=== PATIENT | female | born 1950 | race Caucasian/White ===

== ENCOUNTER 2017-08-09 20:05 | Emergency (ER) | payer MEDICARE, BC ==
[~2017-08-09] VITALS: Ht 170.2 cm; Wt 49.9 kg
[~2017-08-09 20:05] MED LIST: ALBU90OI6 INH; ASPI325EC PO; BLACK CURRENT OIL PO; Brovana15 MCG/2 M; CALCA400CH PO; CALCNI; CHOL10002 PO; CITA20 PO; ESOM20; FISH1000 PO; FURO40; FURO40 PO; GABA300; GABA600 PO; HYDMOR2 PO; HYDMOR4 PO; LEVFLO500 PO; LEVSOD100; LEVSOD100 PO; LORA1 PO; MELA3 PO; MELO7.5; MONT10T PO; MONT4; Morphine Sulfat30 M1 PO; NEBI5 PO; OXYACE5T; POTCHL10ER; POTCHL20ER PO; PRAM.5 PO; RABE20 PO; SERT50; SIMV40 PO; TEGA2; ZOLP5; [UNRECOGNIZED DRUG - OTHER]; [UNRECOGNIZED DRUG - OTHER]
[2017-08-09] MEDS ORDERED: LORA1 PO (20:21)
[2017-08-09] MEDS ORDERED: MONT10T PO (20:21)
[2017-08-09] MEDS ORDERED: TRAZ50 PO (20:22)
[2017-08-09] MEDS ORDERED: Flonase 0.05% N16 GM (20:22)
[2017-08-09] MEDS ORDERED: Cyclobenzaprine5 MG PO (22:25)
== END 2017-08-09 22:49 | disposition home or self-care (01) ==
LOC: ER 20:05
DX: M79.602 Pain in left arm (principal); Z88.2 Allergy status to sulfonamides; Z88.8 Allergy status to other drugs, medicaments and biological substances; Z88.5 Allergy status to narcotic agent; Z91.040 Latex allergy status; Z88.1 Allergy status to other antibiotic agents; Z79.899 Other long term (current) drug therapy; Z79.891 Long term (current) use of opiate analgesic; F17.200 Nicotine dependence, unspecified, uncomplicated
CPT/HCPCS: 93971; 99284

== ENCOUNTER → 2017-11-09 | Outpatient (CLI) | payer MEDICARE, BC ==
[~2017-11-09] MED LIST changes: +Cyclobenzaprine5 MG PO; +Flonase 0.05% N16 GM; +TRAZ50 PO
== END | disposition home or self-care (01) ==
LOC: LAB SHORT 16:19 → LAB EV 16:19
DX: N30.00 Acute cystitis without hematuria (principal)
CPT/HCPCS: 87086

== ENCOUNTER 2018-08-19 19:27 | Emergency (ER) | payer MEDICARE ==
[~2018-08-19] VITALS: Ht 162.6 cm; Wt 48.1 kg
[2018-08-19] MEDS ORDERED: Roxicodone5 MG PO (23:43)
[2018-08-21] MEDS ORDERED: POTCHL10ER PO (14:32)
[2018-08-21] MEDS ORDERED: HYDMOR4 PO (14:33)
[2018-08-21] MEDS ORDERED: FURO40 PO (14:33)
[2018-08-21] MEDS ORDERED: LORA1 PO (14:34)
[2018-08-21] MEDS ORDERED: MONT10T PO (14:34)
[2018-08-21] MEDS ORDERED: MORP30ER PO (14:34)
[2018-08-21] MEDS ORDERED: LEVSOD75 PO (14:35)
[2018-08-21] MEDS ORDERED: Flonase 0.05% N16 GM (14:35)
[2018-08-21] MEDS ORDERED: GABA600 PO (14:35)
[2018-08-21] MEDS ORDERED: COCONUT OIL1000 MG PO (14:36)
[2018-08-21] MEDS ORDERED: ESOM20 PO (14:36)
[2018-08-21] MEDS ORDERED: CETI5 PO (14:36)
[2018-08-21] MEDS ORDERED: BIOTIN10000 MC1 PO (14:37)
[2018-08-21] MEDS ORDERED: ZINC15 PO (14:37)
[2018-08-21] MEDS ORDERED: MAGNESIUM CITR100 MG PO (14:38)
[2018-08-21] MEDS ORDERED: ASPI81CH PO (14:39)
[2018-08-21] MEDS ORDERED: MELATONIN5 M1 PO (14:39)
[2018-08-21] MEDS ORDERED: CALCIUM + D SO1 EACH PO (14:40)
[2018-08-21] MEDS ORDERED: CHOL10002 PO (14:41)
[2018-08-21] MEDS ORDERED: Fish Oil 10001000 MG PO (14:41)
[2018-08-21] MEDS ORDERED: DOCCAL240 PO (14:42)
[2018-08-21] MEDS ORDERED: BISA5EC PO (14:42)
[2018-08-21] MEDS ORDERED: TIZANIDINE HCL2 MG PO (14:43)
[2018-08-21] MEDS ORDERED: VENL150ER PO (14:43)
[2018-08-21] MEDS ORDERED: ASCO500 PO (14:44)
[2018-08-21] MEDS ORDERED: ATOR40TA PO (14:44)
[2018-08-21] MEDS ORDERED: Trazodone HCl300 MG PO (14:45)
[2018-08-21] MEDS ORDERED: LINZESS72 MCG PO (14:45)
[2018-08-21] MEDS ORDERED: TRIM100 PO (14:45)
== END 2018-08-20 00:28 | disposition home or self-care (01) ==
LOC: ER 19:27
DX: S52.571A Other intraarticular fracture of lower end of right radius, initial encounter for closed fracture (principal); W01.0XXA Fall on same level from slipping, tripping and stumbling without subsequent striking against object, initial encounter; Z88.2 Allergy status to sulfonamides; Z88.8 Allergy status to other drugs, medicaments and biological substances; Z88.5 Allergy status to narcotic agent; Z91.040 Latex allergy status; Z79.899 Other long term (current) drug therapy; Z79.891 Long term (current) use of opiate analgesic; J45.909 Unspecified asthma, uncomplicated; K21.9 Gastro-esophageal reflux disease without esophagitis; F17.200 Nicotine dependence, unspecified, uncomplicated
CPT/HCPCS: 25605; 72100; 73100; 73110; 99283-25; A9270; J2704; J7030

== ENCOUNTER 2018-08-22 11:31 | Day surgery (SDC) | payer MEDICARE ==
[~2018-08-22] VITALS: Wt 49.8 kg
[~2018-08-22 11:31] MED LIST changes: +ASCO500 PO; +ASPI81CH PO; +ATOR40TA PO; +BIOTIN10000 MC1 PO; +BISA5EC PO; +CALCIUM + D SO1 EACH PO; +CETI5 PO; +COCONUT OIL1000 MG PO; +DOCCAL240 PO; +ESOM20 PO; +Fish Oil 10001000 MG PO; +LEVSOD75 PO; +LINZESS72 MCG PO; +MAGNESIUM CITR100 MG PO; +MELATONIN5 M1 PO; +MORP30ER PO; +POTCHL10ER PO; +Roxicodone5 MG PO; +TIZANIDINE HCL2 MG PO; +TRIM100 PO; +Trazodone HCl300 MG PO; +VENL150ER PO; +ZINC15 PO
--- NOTE | 2018-08-22 12:17 | NUR ---
PT ADMITTED TO [facility]. AGREES WITH PLANNED SURGERY. LUNG SOUNDS CLEAR.
--- NOTE | 2018-08-22 16:39 | NUR ---
Patient up to Ambulate independently. Gait steady. Discharge instructions reviewed with patient. Patient verbalizes understanding. Copy given to patient to take home. Patient States Post-Procedure ride home has been arranged. Discharged via wheelchair to private car for ride home.
== END 2018-08-22 22:55 | disposition home or self-care (01) ==
LOC: ORSCMMR 11:31
PROVIDERS: Orthopaedic Surgery
PROC: 0PSH04Z Reposition Right Radius with Internal Fixation Device, Open Approach (ICD-10-PCS; principal; 2018-08-22 12:30)
DX: S52.571A Other intraarticular fracture of lower end of right radius, initial encounter for closed fracture (principal); I10 Essential (primary) hypertension; J45.909 Unspecified asthma, uncomplicated; J44.9 Chronic obstructive pulmonary disease, unspecified; F17.210 Nicotine dependence, cigarettes, uncomplicated; E03.9 Hypothyroidism, unspecified; Z79.899 Other long term (current) drug therapy; Z79.82 Long term (current) use of aspirin
CPT/HCPCS: C1713; J0690; J1100; J1885; J2250; J2405; J2704; J3010; J7120

== ENCOUNTER 2019-05-21 17:30 | Inpatient (IN) | payer MEDICARE ==
[~2019-05-21] VITALS: Ht 162.6 cm; Wt 49.4 kg
[~2019-05-21 17:30] MED LIST changes: +ATOR20 PO; -ATOR40TA PO; +GABA300 PO; +MORP15ER PO; -MORP30ER PO; +ZINC CHELATED50 MG PO; -ZINC15 PO
[2019-05-21] MEDS ORDERED: CALCIUM CARBON500 M1 PO (18:43)
[2019-05-21] MEDS ORDERED: [UNRECOGNIZED DRUG - OTHER] PO (18:46)
[2019-05-21] MEDS ORDERED: ACCUFLORA PO (18:56)
[2019-05-21] MEDS ORDERED: TIZA4 PO (18:58)
[2019-05-21] MEDS ORDERED: CYAN500 PO (18:59)
[2019-05-21 19:23] LABS: BASOPHILS ABSOLUTE AUTO 0.01 K/mm3 (0.00-0.23); BASOPHILS PERCENT AUTO 0 % (0-2); EOSINOPHILS ABSOLUTE AUTO 0.04 K/mm3 (0.00-0.68); EOSINOPHILS PERCENT AUTO 0 % (0-6); Hematocrit 39.5 % (33.0-51.0); Hemoglobin 12.8 g/dL (11.5-16.0); IMMATURE GRAN ABSOLUTE AUTO 0.04 K/mm3 (0.00-0.10); IMMATURE GRAN PERCENT AUTO 0 % (0-1); LYMPHOCYTES ABSOLUTE AUTO 1.64 K/mm3 (0.84-5.20); LYMPHOCYTES PERCENT AUTO 18 % (21-46); MONOCYTES ABSOLUTE AUTO 0.49 K/mm3 (0.16-1.47); MONOCYTES PERCENT AUTO 5 % (4-13); Mean Corpuscular HGB 30.3 pg (26.0-34.0); Mean Corpuscular HGB Conc 32.4 g/dL (31.5-36.5); Mean Corpuscular Volume 93 fL (80-100); Mean Platelet Volume 9.9 fL (9.1-12.4); NEUTROPHILS ABSOLUTE AUTO 6.84 K/mm3 (1.96-9.15); NEUTROPHILS PERCENT AUTO 76 % (41-73); Platelet Count 177 K/mm3 (150-400); RDW Coefficient Variation 14.4 % (11.7-14.2); RDW Standard Deviation 49.4 fL (35.1-46.3); Red Blood Cell Count 4.23 M/mm3 (3.80-5.20); White Blood Cell Count 9.06 K/mm3 (4.00-11.30)
[2019-05-21 19:42] LABS: Alanine Aminotransfer (ALT/SGP 30 U/L (12-78); Albumin, Blood 3.3 g/dL (3.4-5.0); Albumin/Globulin Ratio 0.9 (0.8-1.8); Alk Phos 86 U/L (50-136); Anion Gap 4 mmol/L (6-16); Aspartate Aminotrans (AST/SGOT 25 U/L (12-37); Bilirubin, Total 0.1 mg/dL (0.1-1.0); Blood Urea Nitrogen 9 mg/dL (8-24); Bun/Creatinine Ratio 11.6 (12.0-20.0); CO2, Blood 29 mmol/L (21-32); Calcium, Blood 8.6 mg/dL (8.5-10.1); Chloride, Blood 108 mmol/L (98-108); Creatinine, Blood 0.78 mg/dL (0.40-1.00); Globulin, Blood 3.6 g/dL (2.2-4.0); Glomerular Filtration Rate >60 (60-); Glucose, Blood 91 mg/dL (70-99); Potassium, Blood 4.1 mmol/L (3.5-5.5); Sodium, Blood 141 mmol/L (136-145); Total Protein, Blood 6.9 g/dL (6.4-8.2)
--- NOTE | 2019-05-22 03:23 | NUR ---
SHIFT SUMMARY: PATIENT ARRIVED TO PCU3 AT APPROX 0200 VIA GURNEY FROM ER. PATIENT VERY LETHARGIC BUT AROUSING TO TOUCH/PAIN/LOCALIZING, DAUGHTER AT BEDSIDE, SKIN C/D/I. PATIENT SLIDE TRANSFER TO BED WITH MINIMAL DISCOMFORT, LEFT LEG ELEVATED, ADMISSION COMNPLETED WITH ASSISTANCE OF DAUGHTER. DELIVERY DRIVER/SUPERVISOR RUNNING AT ORDERED RATE, VERIFIED WITH ROSAS RN. 18GAUGE PLACED IN LEFT FA, PATIENT TO9 SIGN BLOOD CONSENT PAPERWORK WHEN AWAKE IN THE AM, TOO LETHARGIC AT THIS TIME, PATIENT NPO. BED LOW AND LOCKED, CALL LIGHT WITHIN REACH.
--- NOTE | 2019-05-22 14:42 | NUR ---
DR. AGARWAL NOTIFIED OF PT TEMP 102.5. MADE AWARE THAT INITIAL SPO2 ON RA WAS 84%. FIO2 TITRATED UP TO 4 LITERS NASAL CANULA TO KEEP SATS>90%. LUNGS WITH SCATTERED EXPIRATORY WHEEZES. DUONEB GIVEN. DR. AGARWAL TO ORDER:PA&LAT CXR, BCX2, UA, CBC, AND CMP. OR CHARGE MADE AWARE.
--- NOTE | 2019-05-22 15:04 | NUR ---
SPOKE WITH DR. AGARWAL REGARDING PA AND LATERAL CXR ORDERED. RADIOLOGY STATES THAT PT WILL NOT BE ABLE TO TOLERATE THIS X-RAY WITH HER HIP-CH1V ORDERED INSTEAD. DR. NAVA UPDATED BY MEGAN DENSON. THE SURGERY IS TO BE RESCHEDULED FOR TOMORROW. REGULAR DIET AND TRAY NOW PLACED. MEGAN LOVE AWARE OF NEW ORDERS PLACED BY DR. AGARWAL. PT RETURNED TO PCU.
--- NOTE | 2019-05-22 15:11 | NUR ---
Patient returned back from PACU, the surgery has been delayed until tomorrow. Patient oxygen saturation was 86% when she got to PACU, Per john GUZMAN, oxygen was titrated up to 4l and saturations improved above 90. Patient was febrile, temp [address] Davenport was notified, see new orders. Family at bedside. technical assoc at [facility] to do portable X-Ray.
--- NOTE | 2019-05-22 15:59 | NUR ---
Spiritual care visit conducted. Patient is sitting up in bed and alert. Patient tells me about the events that led to her hospitalization, about her family and about her lazaro journey (from Synagogue to Judaism). She also talks about the frustration of having her surgery postponed and the pain that she is currently in. I listen empathically, normalize patient's experience and provide pre-surgery prayer. Patient displays evidence of reduced stress. Before I even step out of the room several staff members were coming in to move her out for her surgery. I will continue to remain available to patient and family.
[2019-05-22 16:11] LABS: BASOPHILS ABSOLUTE AUTO 0.01 K/mm3 (0.00-0.23); BASOPHILS PERCENT AUTO 0 % (0-2); EOSINOPHILS ABSOLUTE AUTO 0.03 K/mm3 (0.00-0.68); EOSINOPHILS PERCENT AUTO 1 % (0-6); Hematocrit 36.9 % (33.0-51.0); IMMATURE GRAN ABSOLUTE AUTO 0.02 K/mm3 (0.00-0.10); IMMATURE GRAN PERCENT AUTO 0 % (0-1); LYMPHOCYTES ABSOLUTE AUTO 1.15 K/mm3 (0.84-5.20); LYMPHOCYTES PERCENT AUTO 18 % (21-46); MONOCYTES ABSOLUTE AUTO 0.43 K/mm3 (0.16-1.47); MONOCYTES PERCENT AUTO 7 % (4-13); Mean Corpuscular HGB 30.2 pg (26.0-34.0); Mean Corpuscular HGB Conc 32.5 g/dL (31.5-36.5); Mean Corpuscular Volume 93 fL (80-100); Mean Platelet Volume 10.3 fL (9.1-12.4); NEUTROPHILS ABSOLUTE AUTO 4.65 K/mm3 (1.96-9.15); NEUTROPHILS PERCENT AUTO 74 % (41-73); Platelet Count 154 K/mm3 (150-400); RDW Coefficient Variation 14.6 % (11.7-14.2); RDW Standard Deviation 49.1 fL (35.1-46.3); Red Blood Cell Count 3.98 M/mm3 (3.80-5.20); White Blood Cell Count 6.29 K/mm3 (4.00-11.30)
--- NOTE | 2019-05-22 16:21 | NUR ---
DR AGARWAL IS CALLED PT WAS RETURNED FROM OR WITHOUT SURGERY. PT'S FAMILY EXPRESSED ANGER THAT MORPHINE HAS BEEN D/C DEMANDS TO PT'S PAIN SPECIALIST COME TREAT HER. FAMILY IS EDUCATED THAT DR AGUILAR HAD BEEN CONSULTED ABOUT THE D/C OF MORPHINE, DESPITE REASSURING THAT DRS HAVE BEEN CONUSLTED FAMILY STS "I'M GOING TO GO GET HER HOME MEDCATIONS AND GIVE THEM TO HER AND I DON'T CARE IF I GET IN TROUBLE" DR AGARWAL IS UPDATED ABOUT THIS RN'S CONCERN THAT FAMILY COULD ALSO BE MEDICATING PT WITHOUT STAFF KNOWLEDGE, DR AGARWAL STS THAT HE WILL REVIEW PT'S HOME MEDICATION LIST AND WILL BE INTO SEE HER SHORTLY. PHARMACY FAXED FOR ROCEPHIN
[2019-05-22 16:28] LABS: Anion Gap 0 mmol/L (6-16); Blood Urea Nitrogen 11 mg/dL (8-24); Bun/Creatinine Ratio 16.6 (12.0-20.0); CO2, Blood 28 mmol/L (21-32); Calcium, Blood 8.6 mg/dL (8.5-10.1); Chloride, Blood 107 mmol/L (98-108); Creatinine, Blood 0.66 mg/dL (0.40-1.00); Glomerular Filtration Rate >60 (60-); Glucose, Blood 99 mg/dL (70-99); Potassium, Blood 4.4 mmol/L (3.5-5.5); Sodium, Blood 135 mmol/L (136-145)
[2019-05-22 18:02] LABS: Source, Urine Catheter
[2019-05-22 18:16] LABS: Appearance, Urine Clear (Clear); Bilirubin, Urine Neg (Neg); Blood, Urine 2+ (Neg); Color, Urine Yellow (P-Yellow); Glucose Qualitative, Urine Neg (Neg); Ketones, Urine Neg (Neg); Leukocyte Esterase, Urine 1+ (Neg); Nitrite, Urine Neg (Neg); Protein, Urine Neg (Neg); Specific Gravity, Urine 1.015 (1.003-1.022); Urobilinogen, Urine NORM (Normal)
[2019-05-22 18:50] LABS: Bacteria Few /hpf; Squamous Epithelial Cells Not Seen /hpf (Few); White Blood Cells, Urine 0-2 /hpf (0-5)
--- NOTE | 2019-05-22 19:01 | NUR ---
SHIFT NOTE PT HAS BEEN MEDICATED T/O THE DAY FOR PAIN PT REPORTS THAT PAIN DOES NOT DROP BELOW 7, PT DOES APPEAR DROWSY AFTER MEDICATION ADMIT BUT STS THAT SHE HAS HAD NO PAIN RELIEF. PT WAS SENT BACK FROM OR FOR FEVER, DR AGARWAL WAS SONCERNED THAT FEVER WAS R/T WITHDRAWL FROM MORPHINE, FEVER DOES LOWER BUT DOES NOT RESOLVE, ROOPA GUZMAN AWARE THAT PT WILL BNEED TYLENOL
--- NOTE | 2019-05-23 05:39 | NUR ---
SHIFT SUMMARY PT SLEEPING IN ROOM W/ DAUGHTER AT BEDSIDE. PT HAS SLEPT IN SHORT PERIODS T/O NIGHT. PT HAS BEEN RESTLESS AND MOVING SELF IN BED. PT REMINDED TO KEEP L LEG STILL AND ELEVATED ON PILLOWS D/T FX, BUT PT IS BEING NONCOMPLIENT WITH IMMOBILIZATION. RESP EVEN UNLABORED ON 4L NC w/ SATS >92%. DRAWBENCH OPERATOR DILAUDID PUMP IN PLACE ON PT DEMAND WITH HAND PUMP. PT WAS MEDICATED ONCE DURING NIGHT WITH ATIVAN FOR ANXIETY, PT WAS ABLE TO SLEEP PEACEFULLY FOR SEVERAL HOURS AFTER ADMIN. PT LUIZA HAS BEEN UPSET IN ROOM WITH MEDICATION ADMIN AND PT HOME TRAZADONE DOSE. PT HAS BEEN LETHARGIC T/O SHIFT, AND FALLS ASLEEP MIDCONVERSATION AT TIMES. PT HAS BEEN AROUSABLE TO VERBAL, BUT CONTINUES TO EXPRESS CONFUSION AND LETHARGY. PT WAS FEBRILE DURING FIRST HALF OF SHIT WITH A TMAX OF 102. FEVER HAS SINCE COME DOWN WITH MEDICATIONS, AND COOLING MEASURES. CALL LIGHT IS WITHIN REACH. PT AND DAUGHTER REQUESTING NO BEDSIDE REPORT THIS AM IF PT IS SLEEPING.
--- NOTE | 2019-05-23 11:51 | NUR ---
PT'S FAMILY SAW MAKER LIGHT, SON IMMEDIATELY WITH ELEVATED VOICE WHEN THEN RN TO ROOM STS THAT PT'S PAIN IS NOT BEING WELL MANAGED. PT IS MOVING ABOUT IN BED, APPEARS DROWSY, PT STS THAT SHE HAS SPASMS TO LT LEG. PT IS MEDICATED WITH ATIVAN. PT'S SON AGAIN WITH HOSTILE TONE STS "WELL IF SHE IS NOT GETTING SURGERY TODAY THEN SHE NEEDS TO EAT! IT IS INTERESTING THAT SHE DIDN'T HAVE A SURGERY TIME YESTERDAY UNTIL WE GOT THE PATIENT ADVOCATE CALLED" SON IS EDUCATED ABOUT SURGUCAL TIME BEING ESTABLISHED IN RELATION TO PT ADVOCATE BEING CALLED. SON EXPRESSED UPSET HE PERCIEVES THAT PT'S PAIN IS NOT BEING PROPERLY MANAGED, PT IS NODDING OFF THIS CONCERN IS BEING EXPRESSED, PT DOES NOT APPEAR TO BE IN VISIBLE DISTRESS. PT IS REPOSITIONED FOR COMFORT. STRONG PULSES TO LT PEDAL POST REPOSITIONING NOTED. PT REMAINS DROWSY, FALLS ASLEEP DURING CONVERSATION THEN AWAKES ABRUPTLY AND PRESSES CONDUIT INSTALLER EACH TIME, IT IS ENSURED THAT CONDUIT INSTALLER DOES LOCK OUT AT 10 MINUTE INTERVALS PRESCRIBED
--- NOTE | 2019-05-23 12:25 | NUR ---
REPORT CALLED TO SEN GUZMAN ON SURG FLOOR
--- NOTE | 2019-05-23 15:09 | NUR ---
TRANSFER: REPORT RECEIVED FROM DOUGH MAKER. PT TO ROOM 221 AT ABOUT 1235. UPON ASSESSMENT PT IS IN NO VISABLE DISTRESS, SEEMS DROWSY, EYE LIDS ARE HEAVY. PT IS ORIENTED AND ANSWERS QUESTIONS. CSM INTACT TO L LEG, ABLE TO WIGGLE TOES. PT REPORTS PAIN IS 7/10, TOOL TROUBLE SHOOTER BUTTON ENCOURAGED, SCHEDULED PO PAIN MEDS TO BE GIVEN PER EMAR SOON. CONTINIOUS BI OX SET UP BY RESPIRATORY. PT FAMILY AT BEDSIDE. WILL CTM PT STATUS.
--- NOTE | 2019-05-23 16:46 | NUR ---
SUMMARY: NO ACUTE CHANGE SINCE TRANSFER. PT IS ALERT, CONTINUES TO BE DROWSY. PAIN SEEMS TO BE WELL MANAGED PER EMAR. PT GIVEN MILK OF MAG,REPORTS HAS NOT HAD BM SINCE ADMISSION. DR. NAVA IN ROOM AT ABOUT 1600, PLAN IS FOR SURGERY TOMORROW, PT TO BE NPO AT 0000. PT POSITIONED FOR COMFORT, FAMILY IN ROOM. NO ACUTE SAFETY CONCERNS AT THIS TIME. WILL CTM AND REPORT TO NOC RN.
[2019-05-23 17:39] LABS: BASOPHILS ABSOLUTE AUTO 0.01 K/mm3 (0.00-0.23); BASOPHILS PERCENT AUTO 0 % (0-2); EOSINOPHILS ABSOLUTE AUTO 0.04 K/mm3 (0.00-0.68); EOSINOPHILS PERCENT AUTO 1 % (0-6); Hematocrit 35.8 % (33.0-51.0); Hemoglobin 11.5 g/dL (11.5-16.0); IMMATURE GRAN ABSOLUTE AUTO 0.02 K/mm3 (0.00-0.10); IMMATURE GRAN PERCENT AUTO 0 % (0-1); LYMPHOCYTES ABSOLUTE AUTO 1.02 K/mm3 (0.84-5.20); LYMPHOCYTES PERCENT AUTO 15 % (21-46); MONOCYTES ABSOLUTE AUTO 0.46 K/mm3 (0.16-1.47); MONOCYTES PERCENT AUTO 7 % (4-13); Mean Corpuscular HGB 29.9 pg (26.0-34.0); Mean Corpuscular HGB Conc 32.1 g/dL (31.5-36.5); Mean Corpuscular Volume 93 fL (80-100); Mean Platelet Volume 10.4 fL (9.1-12.4); NEUTROPHILS ABSOLUTE AUTO 5.13 K/mm3 (1.96-9.15); NEUTROPHILS PERCENT AUTO 77 % (41-73); Platelet Count 161 K/mm3 (150-400); RDW Coefficient Variation 14.2 % (11.7-14.2); RDW Standard Deviation 48.7 fL (35.1-46.3); Red Blood Cell Count 3.84 M/mm3 (3.80-5.20); White Blood Cell Count 6.68 K/mm3 (4.00-11.30)
[2019-05-23 17:53] LABS: Anion Gap 2 mmol/L (6-16); Blood Urea Nitrogen 14 mg/dL (8-24); Bun/Creatinine Ratio 27.1 (12.0-20.0); CO2, Blood 30 mmol/L (21-32); Calcium, Blood 8.6 mg/dL (8.5-10.1); Chloride, Blood 106 mmol/L (98-108); Creatinine, Blood 0.52 mg/dL (0.40-1.00); Glomerular Filtration Rate >60 (60-); Glucose, Blood 130 mg/dL (70-99); Potassium, Blood 3.8 mmol/L (3.5-5.5); Sodium, Blood 138 mmol/L (136-145)
--- NOTE | 2019-05-23 18:35 | NUR ---
SPOKE WITH DR. NAVA AT REQUEST OF DR. HULL CONCERNING GIVING PT LOVENOX OR HEPARIN. NO NEW ORDERS AT THIS TIME, WILL MAKE DR. HULL AWARE. SCD'S AND TEDS PLACED ON PT AT ABOUT 1820.
--- NOTE | 2019-05-24 04:26 | NUR ---
SHIFT SUMMARY AAOX4, VSS. MARKER MACHINE INFUSING DURING SHIFT, MEDICATED PER EMAR. PT STATES PAIN IS "TOLERABLE". PT HAS BEEN RESTING IN BED DURING SHIFT. FAMILT AT BEDSIDE. NPO SINCE MIDNIGHT FOR PLANNED PROCEDURE TODAY.
[2019-05-24 04:59] LABS: Hematocrit 34.4 % (33.0-51.0)
--- NOTE | 2019-05-24 11:51 | NUR ---
PT TO OR AT THIS TIME
--- NOTE | 2019-05-24 12:44 | NUR ---
History, Chart, Medications and Allergies reviewed before start of procedure.Patient confirms NPO status and agrees with scheduled surgery. DUONEB GIVEN PER ANETHESIA PREOP. Surgical site prepped with 2% Chlorhexidine cloth wipe. SECOND IV BRUISED AT INSERTION SITE TO RFA. RUNS WELL. FLUSHED WITH 10 ML. SL'D LFA IV, PATENT WELL
--- NOTE | 2019-05-24 13:58 | NUR ---
05/24/19 Nola Contreras A PATIENT CAME TO OR WITH CEDILLO CATHETER IN PLACE
--- NOTE | 2019-05-24 14:24 | NUR ---
RECENTLY BEEN GIVEN REPORT FROM OTHER RN BUDDY AND LETTY ASSUMING CARE OF PT AT THIS TIME, PT OUT OF ROOM FOR PROCEDURE.
--- NOTE | 2019-05-24 15:00 | NUR ---
PT RECENTLY BACK FROM HAVING PROCEDURE. PT DENIES NAUSEA. PT REPORTS VERY PAINFULL. SENIOR ASIC ENGINEER ASSISTED WITH PLACING PT BACK ON STONE POLISHER HAND. PT GIVEN JELLO AND OSWALDOER'S, THAT IF PT TOLERATES WILL GIVE PO MEDICATIONS ORDERED. PT HAS 2 SMALL AQUACELL DRESSINGS TO L HIP. PPP. PT WIGGLES TOES. TEDS AND PAS IN PLACE TO BLE.
--- NOTE | 2019-05-24 16:29 | NUR ---
DR AGARWAL HERE TO SEE PT.
--- NOTE | 2019-05-25 04:46 | NUR ---
SHIFT SUMMARY PT IS A/O X4, REPOSITIONS SELF WELL IN BED. PAIN MANAGED WITH MEDICATIONS PER ORDERS AND ICE PACK TO HIP. PT TOLERATING PO INTAKE. CEDILLO IN PLACE, PATENT. PT HAS BEEN USING 02 NC THROUGH THE NIGHT AND HAS CONT BIOX IN PLACE. PT WAS ABLE TO GET REST DURING THE NIGHT. ASSISTED WITH ADL'S PRN.
[2019-05-25 04:47] LABS: BASOPHILS PERCENT AUTO 0 % (0-2); EOSINOPHILS ABSOLUTE AUTO 0.01 K/mm3 (0.00-0.68); EOSINOPHILS PERCENT AUTO 0 % (0-6); Hematocrit 35.2 % (33.0-51.0); Hemoglobin 11.3 g/dL (11.5-16.0); IMMATURE GRAN ABSOLUTE AUTO 0.03 K/mm3 (0.00-0.10); IMMATURE GRAN PERCENT AUTO 1 % (0-1); LYMPHOCYTES ABSOLUTE AUTO 0.77 K/mm3 (0.84-5.20); LYMPHOCYTES PERCENT AUTO 12 % (21-46); MONOCYTES ABSOLUTE AUTO 0.44 K/mm3 (0.16-1.47); MONOCYTES PERCENT AUTO 7 % (4-13); Mean Corpuscular HGB 30.1 pg (26.0-34.0); Mean Corpuscular HGB Conc 32.1 g/dL (31.5-36.5); Mean Corpuscular Volume 94 fL (80-100); Mean Platelet Volume 10.4 fL (9.1-12.4); NEUTROPHILS ABSOLUTE AUTO 4.95 K/mm3 (1.96-9.15); NEUTROPHILS PERCENT AUTO 80 % (41-73); Platelet Count 143 K/mm3 (150-400); RDW Coefficient Variation 14.1 % (11.7-14.2); Red Blood Cell Count 3.76 M/mm3 (3.80-5.20)
--- NOTE | 2019-05-25 18:01 | NUR ---
SHIFT SUMMARY PT DRINKING WELL. PT CONT TO HAVE CEDILLO IN PLACE. PT WORKED WITH THERAPY AND IS UP TO CHAIR. DISCUSSED BOWEL CARE WITH PT. PT BEEN ASSISTED WITH ADL'S PRN. PT MULT FAMILY IN/OUT OF ROOM. PT HAS CALL LIGHT IN REACH, BEEN USING APPR.
--- NOTE | 2019-05-25 19:11 | NUR ---
THIS RN WALKED HOME MED TO PHARMACY WHO REPORTED THAT THEY WOULD SEND IT BACK IN TUBE SYSTEM. HS RN NOTIFIED.
[2019-05-26 06:17] LABS: BASOPHILS ABSOLUTE AUTO 0.01 K/mm3 (0.00-0.23); BASOPHILS PERCENT AUTO 0 % (0-2); EOSINOPHILS ABSOLUTE AUTO 0.04 K/mm3 (0.00-0.68); EOSINOPHILS PERCENT AUTO 1 % (0-6); Hematocrit 34.1 % (33.0-51.0); IMMATURE GRAN ABSOLUTE AUTO 0.03 K/mm3 (0.00-0.10); IMMATURE GRAN PERCENT AUTO 1 % (0-1); LYMPHOCYTES PERCENT AUTO 27 % (21-46); MONOCYTES ABSOLUTE AUTO 0.34 K/mm3 (0.16-1.47); MONOCYTES PERCENT AUTO 7 % (4-13); Mean Corpuscular HGB Conc 32.3 g/dL (31.5-36.5); Mean Corpuscular Volume 93 fL (80-100); Mean Platelet Volume 10.4 fL (9.1-12.4); NEUTROPHILS ABSOLUTE AUTO 3.15 K/mm3 (1.96-9.15); NEUTROPHILS PERCENT AUTO 65 % (41-73); Platelet Count 163 K/mm3 (150-400); RDW Coefficient Variation 14.4 % (11.7-14.2); RDW Standard Deviation 48.8 fL (35.1-46.3); Red Blood Cell Count 3.67 M/mm3 (3.80-5.20); White Blood Cell Count 4.87 K/mm3 (4.00-11.30)
--- NOTE | 2019-05-26 07:35 | NUR ---
SHIFT SUMMARY PT IS A/O X4 AND NEEDS 1X ASSIST TO BEDSIDE COMMODE. PAIN MANAGED WITH MEDS PER ORDERS; SEE EMAR. PT WAS ABLE TO REST DURING THE NIGHT. CEDILLO IN PLACE, PATENT. TOLERATING PO INTAKE. ASSISTED WITH ADL'S PRN.
--- NOTE | 2019-05-26 08:49 | NUR ---
DR AGARWAL NOTIFIED OF PT C/O NAUSEA AND GAS PAIN. PT REPORTS TAKING GAS X 1-2 TIMES/DAY WHEN AT HOME. DISCUSSED NAUSEA MEDICATION. DR REPORTS TO GIVE ZOFRAN ORDERED. DISCUSSED PT STATING L KNEE STILL SWOLLEN. L KNEE IS SWOLLEN ON INNER PART OF LEG, APPEARS BETTER THAN YESTERDAY. WILL PLACE ICE TO HIP AND KNEE HAS BEEN IN PLACE OFF/ON SINCE SURGERY.
--- NOTE | 2019-05-26 14:25 | NUR ---
DR SOSA BEEN HERE RECENTLY TO SEE PT, DISCUSSED PT'S L KNEE BOTHERING HER.
--- NOTE | 2019-05-26 15:01 | NUR ---
PT HAD MAMADOU MONTESINOS'D RECENTLY BY FEMALE BAG BUILDER. PT RECENTLY WORKED WITH THERAPY. IMAGING TO ROOM FOR XRAY.
--- NOTE | 2019-05-26 17:42 | NUR ---
SHIFT SUMMARY PT EATING DINNER. PT HAD EXTRA LARGE BM THIS AM. PT HAD MAMADOU DC'D THIS AFTERNOON AFTER HAVING PAIN MEDICATION AND BEFORE HAVING THERAPY. PT FAMILY IN/OUT OF ROOM TODAY. PT BEEN ASSISTED WITH ADL'S PRN. PT FEELING BETTER THIS AFTERNOON THAN SHE WAS THIS AM.
--- NOTE | 2019-05-26 22:30 | NUR ---
IV ACCESS PT CURRENTLY HAS NO IV ACCESS BOTH IV'S WERE LEAKING AND WERE DC'D. PT REFUSED NEW IV. PROVIDER AWARE. MEDICATIONS CHANGED TO PO PER PROVIDER.
--- NOTE | 2019-05-27 03:59 | NUR ---
SHIFT SUMMARY PT IS A/O X4, NEEDS STANDBY TO 1 ASSIST TO TRANSFER TO BEDSIDE COMMODE. PAIN MANAGED WITH MEDS PER ORDERS; PAIN OCCURS MOSTLY WITH MOVEMENT. PT WAS ABLE TO GET SLEEP DURING THE SHIFT. TOLERATING PO INTAKE AND VOIDING. PT SLEPT IN CHAIR DURING THE NIGHT IT WAS MORE COMFORTABLE FOR HER. ICE IN PLACE ON HIP. O2 IN PLACE, BIOX IN USE THROUGH THE SHIFT. ASSISTED WITH ADL'S PRN.
--- NOTE | 2019-05-27 12:42 | NUR ---
reclined in chair, ice to left hip and thigh. discussed pain regimen with patient and Dr. Leonard while rounding. pt to go home with home health [facility]. Report given to Carmen to assume care.
--- NOTE | 2019-05-27 13:14 | NUR ---
assumed care of pt, recvd report from previous RN dr Horacio Castro rounding on pt
[2019-05-27] MEDS ORDERED: Culturelle1 CAP PO (15:25)
[2019-05-27] MEDS ORDERED: NICO2 PO (15:25)
[2019-05-27] MEDS ORDERED: LIDO700A20 TOP (15:25)
[2019-05-27] MEDS ORDERED: NICO21TP TOP (15:26)
--- NOTE | 2019-05-27 16:10 | NUR ---
provided pt and family members with discharge instructions and printed education. Pt and daughter state understanding of instructions. Prescription medications faxed to [facility]. Home Health will followup with pt at home. Pt's belongings transferred to awaiting vehicle via cart by pt's . Pt transferred to awaiting vehicle via wheelchair.
== END 2019-05-27 16:03 | disposition home or self-care (01) | DRG 481 ==
LOC: ER 17:30 → ICUW 19:43 → SURS 19:43 → PCU 19:43 → SURS 05-23 12:31
PROVIDERS: Emergency Medicine; Internal Medicine; Internal Medicine Endocrinology, Diabetes & Metabolism; Orthopaedic Surgery; ADMIT Internal Medicine
PROC: 0QSC34Z Reposition Left Lower Femur with Internal Fixation Device, Percutaneous Approach (ICD-10-PCS; principal; 2019-05-24 07:30)
DX: S72.142A Displaced intertrochanteric fracture of left femur, initial encounter for closed fracture (principal); F11.20 Opioid dependence, uncomplicated; E03.9 Hypothyroidism, unspecified; I10 Essential (primary) hypertension; J44.9 Chronic obstructive pulmonary disease, unspecified; K21.9 Gastro-esophageal reflux disease without esophagitis; G89.4 Chronic pain syndrome; M54.5 Low back pain; K59.09 Other constipation; M81.0 Age-related osteoporosis without current pathological fracture; R09.02 Hypoxemia; F17.210 Nicotine dependence, cigarettes, uncomplicated; W19.XXXA Unspecified fall, initial encounter; R50.9 Fever, unspecified
CPT/HCPCS: 36415; 71045; 72100; 73502; 73560-LT; 80048; 80053; 81001; 82947; 85014; 85018; 85025; 87040; 87086; 93005; 93010; 94640; 94760; 94762; 96374; 96375; 96376; 97110; 97116; 97162; 97166; 97530; 97535; 99285-25; A9270; A9270-GY; C1713; C1769; C9113; J0690; J0696; J1100; J1170; J1650; J1885; J2060; J2250; J2370; J2405; J2704; J3010; J7030; J7050; J7120

== ENCOUNTER → 2020-05-11 | Outpatient (CLI) | payer MEDICARE ==
[~2020-05-11] MED LIST changes: +ACCUFLORA PO; +BUDE.25 INH; +CALCIUM CARBON500 M1 PO; +CYAN500 PO; +Culturelle1 CAP PO; +FLUT.05NI; +LIDO700A20 TOP; +LINZESS290 MCG PO; +METO25ER PO; +NICO2 PO; +NICO21TP TOP; +SERT50 PO; +SPIRIVA RESPIMAT4 G3 IH; +TIZA4 PO; +XARELTO20 MG PO; +[UNRECOGNIZED DRUG - OTHER] PO
== END | disposition home or self-care (01) ==
LOC: LAB 18:37 → LAB SHORT 18:37
DX: N39.0 Urinary tract infection, site not specified (principal)
CPT/HCPCS: 87086

== ENCOUNTER 2020-06-25 09:00 | Day surgery (SDC) | payer MEDICARE ==
[~2020-06-25] VITALS: Ht 165.1 cm; Wt 51.7 kg
--- NOTE | 2020-06-25 12:13 | NUR ---
patient resting. left groin site soft and nontender dressing with old blood under it. dr delgado in to talk to and patient. discussing smoking sessation and walking.
--- NOTE | 2020-06-25 14:20 | NUR ---
PATIENT UP TO REST ROOM TO VOID. TOLERATED WELL. LEFT GROIN SITE UNCHANGED.
--- NOTE | 2020-06-25 14:45 | NUR ---
DAUGHTER, , AND PATIENT GIVEN DISCHARGE INSTRUCTIONS AND PRECAUTIONS, AND VERBALIZED UNDERSTANDING. NO FURTHER QUESTION. LEFT GROIN SITE REMAINS STABLE. DRESSING UNCHANGED. TRANSFERRED TO CAR VIA WHEEL CAHIR WITH DAUGHTER AND
== END 2020-06-25 14:30 | disposition home or self-care (01) ==
LOC: MHTC 09:00
DX: I70.213 Atherosclerosis of native arteries of extremities with intermittent claudication, bilateral legs (principal); I10 Essential (primary) hypertension; J44.9 Chronic obstructive pulmonary disease, unspecified; F17.210 Nicotine dependence, cigarettes, uncomplicated; K21.9 Gastro-esophageal reflux disease without esophagitis; E78.5 Hyperlipidemia, unspecified; Z88.1 Allergy status to other antibiotic agents; Z88.5 Allergy status to narcotic agent; Z88.2 Allergy status to sulfonamides; Z88.8 Allergy status to other drugs, medicaments and biological substances; Z79.82 Long term (current) use of aspirin; Z79.01 Long term (current) use of anticoagulants
CPT/HCPCS: 37221; 75625; 75716; 75774; 76937; 99152; 99153; C1757; C1760; C1769; C1876; C1887; C1894; C2623; C9764; J1644; J2250; J3010; J7030; J7050; Q9967

== ENCOUNTER 2020-08-04 10:09 | Day surgery (SDC) | payer MEDICARE ==
[~2020-08-04] VITALS: Ht 165.1 cm; Wt 50.0 kg
--- NOTE | 2020-08-04 17:11 | NUR ---
DISCHARGE PT AMBULATES TO RESTROOM AND DRESSED SELF WITH NO COMPLICATIONS. PT R FEMORAL SITE IS CLEAN, DRY AND INTACT. NO BLEEDING, OOZING OR HEMATOMA NOTED. PT STATES HER UNDERSTANDING OF SITE CARE AND DC INSTRUCTIONS AND DENIES ANY QUESTIONS OR CONCERNS UPON DC. IV DCD WITH CATH INTACT. PT IS AOX4. VSS. PT TAKEN TO EXIT VIA WHEELCHAIR WHERE FAMILY AWAITED WITH VEHICLE.
== END 2020-08-04 17:15 | disposition home or self-care (01) ==
LOC: MHTC 10:09
DX: I70.213 Atherosclerosis of native arteries of extremities with intermittent claudication, bilateral legs (principal); J44.9 Chronic obstructive pulmonary disease, unspecified; I10 Essential (primary) hypertension; E78.5 Hyperlipidemia, unspecified; F17.210 Nicotine dependence, cigarettes, uncomplicated; Z88.2 Allergy status to sulfonamides; Z88.8 Allergy status to other drugs, medicaments and biological substances; Z09 Encounter for follow-up examination after completed treatment for conditions other than malignant neoplasm; Z88.1 Allergy status to other antibiotic agents; Z91.040 Latex allergy status
CPT/HCPCS: 37221; 75716; 75774; 76937; 99152; 99153; A9270; C1725; C1757; C1760; C1769; C1876; C1887; C1894; C2623; C9764; J1644; J2250; J2405; J3010; J7030; J7050; Q9967

== ENCOUNTER 2020-10-08 16:55 | Emergency (ER) | payer MEDICARE ==
[~2020-10-08] VITALS: Ht 162.6 cm; Wt 49.9 kg
[2020-10-08 17:40] LABS: BASOPHILS ABSOLUTE AUTO 0.02 K/mm3 (0.00-0.23); BASOPHILS PERCENT AUTO 0 % (0-2); EOSINOPHILS ABSOLUTE AUTO 0.13 K/mm3 (0.00-0.68); EOSINOPHILS PERCENT AUTO 2 % (0-6); Hematocrit 36.9 % (33.0-51.0); Hemoglobin 11.9 g/dL (11.5-16.0); IMMATURE GRAN ABSOLUTE AUTO 0.02 K/mm3 (0.00-0.10); IMMATURE GRAN PERCENT AUTO 0 % (0-1); LYMPHOCYTES ABSOLUTE AUTO 1.95 K/mm3 (0.84-5.20); LYMPHOCYTES PERCENT AUTO 36 % (21-46); MONOCYTES ABSOLUTE AUTO 0.29 K/mm3 (0.16-1.47); MONOCYTES PERCENT AUTO 5 % (4-13); Mean Corpuscular HGB 28.3 pg (26.0-34.0); Mean Corpuscular HGB Conc 32.2 g/dL (31.5-36.5); Mean Corpuscular Volume 88 fL (80-100); Mean Platelet Volume 10.7 fL (9.1-12.4); NEUTROPHILS PERCENT AUTO 55 % (41-73); Platelet Count 220 K/mm3 (150-400); RDW Coefficient Variation 14.7 % (11.7-14.2); RDW Standard Deviation 46.8 fL (35.1-46.3); Red Blood Cell Count 4.21 M/mm3 (3.80-5.20); White Blood Cell Count 5.41 K/mm3 (4.00-11.30)
[2020-10-08 18:05] LABS: Alanine Aminotransfer (ALT/SGP 25 U/L (12-78); Albumin, Blood 3.6 g/dL (3.4-5.0); Albumin/Globulin Ratio 0.9 (0.8-1.8); Alk Phos 76 U/L (50-136); Anion Gap 7 mmol/L (6-16); Aspartate Aminotrans (AST/SGOT 21 U/L (12-37); Bilirubin, Total 0.3 mg/dL (0.1-1.0); Blood Urea Nitrogen 10 mg/dL (8-24); Bun/Creatinine Ratio 15.1 (12.0-20.0); CO2, Blood 26 mmol/L (21-32); Calcium, Blood 9.2 mg/dL (8.5-10.1); Chloride, Blood 106 mmol/L (98-108); Creatinine, Blood 0.66 mg/dL (0.40-1.00); Globulin, Blood 3.9 g/dL (2.2-4.0); Glomerular Filtration Rate >60 (60-); Glucose, Blood 99 mg/dL (70-99); Potassium, Blood 3.7 mmol/L (3.5-5.5); Sodium, Blood 139 mmol/L (136-145); Total Protein, Blood 7.5 g/dL (6.4-8.2); Troponin I <0.015 ng/mL (0.000-0.040)
== END 2020-10-08 18:52 | disposition left against medical advice (07) ==
LOC: ER 16:55
PROVIDERS: Physician Assistant
DX: R20.0 Anesthesia of skin (principal); H53.8 Other visual disturbances; Z53.20 Procedure and treatment not carried out because of patient's decision for unspecified reasons
CPT/HCPCS: 36415; 80053; 84484; 85025; 93005; 93010; 99283-25

== ENCOUNTER → 2020-11-06 | Outpatient (CLI) | payer MEDICARE ==
[2020-11-06 16:18] LABS: Source, Urine Clean Catch
[2020-11-06 17:18] LABS: Color, Urine Amber (P-Yellow)
[2020-11-06 17:19] LABS: Appearance, Urine Clear (Clear); Bilirubin, Urine 1+ (Neg); Glucose Qualitative, Urine Neg (Normal); Ketones, Urine Neg (Neg); Leukocyte Esterase, Urine Neg (Neg); Nitrite, Urine Pos (Neg); Protein, Urine 1+ (Neg); Specific Gravity, Urine 1.015 (1.003-1.022); Urobilinogen, Urine 2+ (Normal)
[2020-11-06 17:20] LABS: Bacteria Few /hpf; Blood, Urine 1+ (Neg); Squamous Epithelial Cells Few /hpf (Few); White Blood Cells, Urine 0-2 /hpf (0-5)
== END ==
LOC: LAB SHORT 16:15 → LAB 16:15
PROVIDERS: Family Medicine
DX: R30.9 Painful micturition, unspecified (principal)
CPT/HCPCS: 81001; 87086

== ENCOUNTER → 2020-11-18 | Outpatient (CLI) | payer MEDICARE | END | disposition home or self-care (01) | LOC: LAB 14:36 → LAB SHORT 14:36 | DX: N39.0 Urinary tract infection, site not specified (principal); R30.9 Painful micturition, unspecified | CPT/HCPCS: 87077; 87086; 87186 ==

== ENCOUNTER → 2021-04-21 | Outpatient (CLI) | payer MEDICARE ==
[2021-04-21 18:10] LABS: BASOPHILS ABSOLUTE AUTO 0.02 K/mm3 (0.00-0.23); BASOPHILS PERCENT AUTO 0 % (0-2); EOSINOPHILS ABSOLUTE AUTO 0.02 K/mm3 (0.00-0.68); EOSINOPHILS PERCENT AUTO 0 % (0-6); Hematocrit 37.4 % (33.0-51.0); Hemoglobin 12.4 g/dL (11.5-16.0); IMMATURE GRAN ABSOLUTE AUTO 0.05 K/mm3 (0.00-0.10); IMMATURE GRAN PERCENT AUTO 0 % (0-1); LYMPHOCYTES ABSOLUTE AUTO 0.42 K/mm3 (0.84-5.20); LYMPHOCYTES PERCENT AUTO 4 % (21-46); MONOCYTES ABSOLUTE AUTO 0.46 K/mm3 (0.16-1.47); MONOCYTES PERCENT AUTO 4 % (4-13); Mean Corpuscular HGB 29.5 pg (26.0-34.0); Mean Corpuscular HGB Conc 33.2 g/dL (31.5-36.5); Mean Corpuscular Volume 89 fL (80-100); Mean Platelet Volume 10.9 fL (9.1-12.4); NEUTROPHILS ABSOLUTE AUTO 10.35 K/mm3 (1.96-9.15); NEUTROPHILS PERCENT AUTO 91 % (41-73); Platelet Count 175 K/mm3 (150-400); RDW Coefficient Variation 14.4 % (11.7-14.2); RDW Standard Deviation 46.1 fL (35.1-46.3); Red Blood Cell Count 4.21 M/mm3 (3.80-5.20); White Blood Cell Count 11.32 K/mm3 (4.00-11.30)
[2021-04-21 18:19] LABS: Alanine Aminotransfer (ALT/SGP 23 U/L (12-78); Albumin, Blood 3.8 g/dL (3.4-5.0); Albumin/Globulin Ratio 1.2 (0.8-1.8); Alk Phos 74 U/L (40-126); Anion Gap 6 mmol/L (6-16); Aspartate Aminotrans (AST/SGOT 19 U/L (12-37); Bilirubin, Total 0.4 mg/dL (0.1-1.0); Blood Urea Nitrogen 16 mg/dL (8-24); Bun/Creatinine Ratio 18.8 (12.0-20.0); CO2, Blood 25 mmol/L (21-32); Calcium, Blood 8.6 mg/dL (8.5-10.1); Chloride, Blood 101 mmol/L (98-108); Creatinine, Blood 0.85 mg/dL (0.40-1.00); Globulin, Blood 3.1 g/dL (2.2-4.0); Glomerular Filtration Rate >60 (60-); Glucose, Blood 124 mg/dL (70-99); Sodium, Blood 132 mmol/L (136-145); Total Protein, Blood 6.9 g/dL (6.4-8.2)
== END | disposition home or self-care (01) ==
LOC: LAB SHORT 18:04 → LAB 18:04
PROVIDERS: Physician Assistant
DX: R50.9 Fever, unspecified (principal)
CPT/HCPCS: 80053; 83605; 85025

== ENCOUNTER → 2021-05-21 | Outpatient (CLI) | payer MEDICARE ==
[2021-05-21 18:22] LABS: BASOPHILS ABSOLUTE AUTO 0.02 K/mm3 (0.00-0.23); BASOPHILS PERCENT AUTO 0 % (0-2); EOSINOPHILS ABSOLUTE AUTO 0.07 K/mm3 (0.00-0.68); EOSINOPHILS PERCENT AUTO 1 % (0-6); Hematocrit 34.4 % (33.0-51.0); Hemoglobin 11.1 g/dL (11.5-16.0); IMMATURE GRAN ABSOLUTE AUTO 0.04 K/mm3 (0.00-0.10); IMMATURE GRAN PERCENT AUTO 0 % (0-1); LYMPHOCYTES ABSOLUTE AUTO 1.75 K/mm3 (0.84-5.20); LYMPHOCYTES PERCENT AUTO 18 % (21-46); MONOCYTES ABSOLUTE AUTO 0.64 K/mm3 (0.16-1.47); MONOCYTES PERCENT AUTO 6 % (4-13); Mean Corpuscular HGB 28.9 pg (26.0-34.0); Mean Corpuscular HGB Conc 32.3 g/dL (31.5-36.5); Mean Corpuscular Volume 90 fL (80-100); Mean Platelet Volume 10.5 fL (9.1-12.4); NEUTROPHILS ABSOLUTE AUTO 7.44 K/mm3 (1.96-9.15); NEUTROPHILS PERCENT AUTO 75 % (41-73); Platelet Count 205 K/mm3 (150-400); RDW Coefficient Variation 14.6 % (11.7-14.2); RDW Standard Deviation 47.6 fL (35.1-46.3); Red Blood Cell Count 3.84 M/mm3 (3.80-5.20); White Blood Cell Count 9.96 K/mm3 (4.00-11.30)
[2021-05-21 18:37] LABS: Alanine Aminotransfer (ALT/SGP 27 U/L (12-78); Albumin, Blood 3.5 g/dL (3.4-5.0); Alk Phos 84 U/L (40-126); Anion Gap 11 mmol/L (6-16); Aspartate Aminotrans (AST/SGOT 22 U/L (12-37); Bilirubin, Total 0.3 mg/dL (0.1-1.0); Blood Urea Nitrogen 13 mg/dL (8-24); Bun/Creatinine Ratio 15.5 (12.0-20.0); CO2, Blood 26 mmol/L (21-32); Calcium, Blood 8.5 mg/dL (8.5-10.1); Chloride, Blood 102 mmol/L (98-108); Creatinine, Blood 0.84 mg/dL (0.40-1.00); Globulin, Blood 3.5 g/dL (2.2-4.0); Glomerular Filtration Rate >60 (60-); Glucose, Blood 111 mg/dL (70-99); Potassium, Blood 3.8 mmol/L (3.5-5.5); Sodium, Blood 139 mmol/L (136-145)
== END ==
LOC: LAB SHORT 18:14
PROVIDERS: Physician Assistant
DX: R06.00 Dyspnea, unspecified (principal); R07.9 Chest pain, unspecified
CPT/HCPCS: 80053; 84484; 85025; 85379

== ENCOUNTER → 2021-08-27 | Outpatient (CLI) | payer MEDICARE ==
[2021-08-27 18:22] LABS: BASOPHILS ABSOLUTE AUTO 0.02 K/mm3 (0.00-0.23); BASOPHILS PERCENT AUTO 0 % (0-2); EOSINOPHILS ABSOLUTE AUTO 0.06 K/mm3 (0.00-0.68); EOSINOPHILS PERCENT AUTO 1 % (0-6); Hematocrit 35.6 % (33.0-51.0); Hemoglobin 11.9 g/dL (11.5-16.0); IMMATURE GRAN ABSOLUTE AUTO 0.06 K/mm3 (0.00-0.10); IMMATURE GRAN PERCENT AUTO 1 % (0-1); LYMPHOCYTES ABSOLUTE AUTO 1.82 K/mm3 (0.84-5.20); LYMPHOCYTES PERCENT AUTO 20 % (21-46); MONOCYTES ABSOLUTE AUTO 0.68 K/mm3 (0.16-1.47); MONOCYTES PERCENT AUTO 7 % (4-13); Mean Corpuscular HGB 28.5 pg (26.0-34.0); Mean Corpuscular HGB Conc 33.4 g/dL (31.5-36.5); Mean Corpuscular Volume 85 fL (80-100); Mean Platelet Volume 10.9 fL (9.1-12.4); NEUTROPHILS ABSOLUTE AUTO 6.62 K/mm3 (1.96-9.15); NEUTROPHILS PERCENT AUTO 72 % (41-73); Platelet Count 203 K/mm3 (150-400); RDW Coefficient Variation 14.9 % (11.7-14.2); Red Blood Cell Count 4.17 M/mm3 (3.80-5.20); White Blood Cell Count 9.26 K/mm3 (4.00-11.30)
[2021-08-27 18:32] LABS: Bun/Creatinine Ratio 18.8 (12.0-20.0); Calcium, Blood 8.5 mg/dL (8.5-10.1); Creatinine, Blood 0.8 mg/dL (0.40-1.00); Potassium, Blood 3.9 mmol/L (3.5-5.5)
== END | disposition home or self-care (01) ==
LOC: LAB SHORT 18:17 → LAB 18:17
PROVIDERS: Physician Assistant Surgical
DX: R06.00 Dyspnea, unspecified (principal)
CPT/HCPCS: 80048; 83880; 84484; 85025

== ENCOUNTER 2022-10-12 11:06 | Day surgery (SDC) | payer MEDICARE ==
[~2022-10-12] VITALS: Ht 162.6 cm; Wt 47.2 kg
[2022-10-12] VITALS (9 sets, daily range): BP systolic 104–123; BP diastolic 51–64
[2022-10-12] MEDS ORDERED: IPRAT-ALBUT 0.5-3 ML IH (11:44)
--- NOTE | 2022-10-12 15:14 | NUR ---
ASSUMED CARE OF PATIENT FROM MEGAN MARES, DAUGHTER AT THE BEDSIDE. PATIENT LEFT GROIN WITH DRESSING CDI. NO HEMATOMA, NO BLEEDING. REVIEWED DISCHARGE INSTRUCTIONS. ANSWERED ALL QUESTIONS, INFORMED PATIENT THAT SHE IS TO RETURN FOR THE LEFT LEG AND SHE IS NOT WANTING TO DO THE OTHER LEG. i TOLD HER TO CALL AND DISCAUSS THIS WITH THE OFFICE.
--- NOTE | 2022-10-12 15:21 | NUR ---
PATIENT IS SITTING UP IN THE BED 30 DEGREES, MEAL SERVED. DAUGHTER ASSISTING.
--- NOTE | 2022-10-12 16:03 | NUR ---
PIV REMOVED, CATH TIP INTACT AND PRESSURE DRESSING APPLIED. PATIENT DRESSED AND ALL BELONGINGS GATHERED. PATIENT GIVEN COPIES OF DISCHARGE INSTRUCTIONS. PATIENT TO WHEELCHAIR AND DISCHARGED HOME WITH DAUGHTER. WILL RETURN FOR NEXT PROCEDURE DIRECTED BY OFFICE.
== END 2022-10-12 16:35 | disposition home or self-care (01) ==
LOC: MHTC 11:06
DX: I73.9 Peripheral vascular disease, unspecified (principal); J44.9 Chronic obstructive pulmonary disease, unspecified; K21.9 Gastro-esophageal reflux disease without esophagitis; I10 Essential (primary) hypertension; E78.5 Hyperlipidemia, unspecified; F17.210 Nicotine dependence, cigarettes, uncomplicated; Z88.1 Allergy status to other antibiotic agents; Z88.8 Allergy status to other drugs, medicaments and biological substances; Z88.2 Allergy status to sulfonamides; Z91.040 Latex allergy status; Z79.899 Other long term (current) drug therapy
CPT/HCPCS: 37220; 75625; 75716; 75774; 76937; 99152; 99153; C1725; C1760; C1769; C1887; C1894; C9764; J1644; J2250; J3010; J7030; J7050; Q9967

== ENCOUNTER → 2022-11-08 | Outpatient (CLI) | payer MEDICARE ==
[~2022-11-08] MED LIST changes: +IPRAT-ALBUT 0.5-3 ML IH
[2022-11-08 13:07] LABS: BASOPHILS ABSOLUTE AUTO 0.02 K/mm3 (0.00-0.23); BASOPHILS PERCENT AUTO 0 % (0-2); EOSINOPHILS ABSOLUTE AUTO 0.09 K/mm3 (0.00-0.68); EOSINOPHILS PERCENT AUTO 2 % (0-6); Hemoglobin 13.7 g/dL (11.5-16.0); IMMATURE GRAN ABSOLUTE AUTO 0.01 K/mm3 (0.00-0.10); IMMATURE GRAN PERCENT AUTO 0 % (0-1); LYMPHOCYTES ABSOLUTE AUTO 1.69 K/mm3 (0.84-5.20); LYMPHOCYTES PERCENT AUTO 38 % (21-46); MONOCYTES PERCENT AUTO 7 % (4-13); Mean Corpuscular HGB 30.5 pg (26.0-34.0); Mean Corpuscular HGB Conc 33.4 g/dL (31.5-36.5); Mean Corpuscular Volume 91 fL (80-100); Mean Platelet Volume 11.2 fL (9.1-12.4); NEUTROPHILS ABSOLUTE AUTO 2.35 K/mm3 (1.96-9.15); NEUTROPHILS PERCENT AUTO 53 % (41-73); Platelet Count 167 K/mm3 (150-400); RDW Coefficient Variation 14.5 % (11.7-14.2); RDW Standard Deviation 48.5 fL (35.1-46.3); Red Blood Cell Count 4.49 M/mm3 (3.80-5.20); White Blood Cell Count 4.46 K/mm3 (4.00-11.30)
[2022-11-08 21:30] LABS: Ferritin, Serum 28 ng/mL (8-252); Free Thyroxine 0.65 ng/dL (0.70-1.60); Iron Serum 87 ug/dL (50-170); Thyroid Stimulating Hormone 0.871 uIU/mL (0.360-4.800); Total Iron Binding Capacity 309 ug/dL (250-450)
[2022-11-08 21:31] LABS: Alanine Aminotransfer (ALT/SGP 38 U/L (12-78); Albumin, Blood 3.9 g/dL (3.4-5.0); Albumin/Globulin Ratio 1.3 (0.8-1.8); Alk Phos 79 U/L (50-136); Anion Gap 7 mmol/L (6-16); Aspartate Aminotrans (AST/SGOT 24 U/L (12-37); Bilirubin, Total 0.3 mg/dL (0.1-1.0); Blood Urea Nitrogen 13 mg/dL (8-24); Bun/Creatinine Ratio 17.9 (12.0-20.0); CHOL/HDL RATIO 2.3; CO2, Blood 24 mmol/L (21-32); Chloride, Blood 110 mmol/L (98-108); Cholesterol 162 mg/dL (50-200); Creatinine, Blood 0.73 mg/dL (0.40-1.00); Globulin, Blood 3.1 g/dL (2.2-4.0); Glomerular Filtration Rate 88 (60-); Glucose, Blood 102 mg/dL (70-99); HDL Cholesterol 70 mg/dL (>39); LDL/HDL RATIO 1.2; Low Density Lipoprotein Chol 81 mg/dL (0-110); Percent Saturation 28.2 % (15.0-50.0); Potassium, Blood 3.7 mmol/L (3.5-5.5); Sodium, Blood 141 mmol/L (136-145); Triglycerides 57 mg/dL (30-160); Very Low Density Lipoprot Chol 11 mg/dL (6-32)
== END | disposition home or self-care (01) ==
LOC: LAB SHORT 10:20 → LAB 10:20
PROVIDERS: Family Medicine
DX: E78.2 Mixed hyperlipidemia (principal); E03.8 Other specified hypothyroidism; D50.9 Iron deficiency anemia, unspecified; R73.03 Prediabetes
CPT/HCPCS: 80053; 80061; 82728; 83036; 83540; 83550; 84439; 84443; 85025

== ENCOUNTER 2023-02-13 12:58 | Day surgery (SDC) | payer MEDICARE ==
[~2023-02-13] VITALS: Ht 162.6 cm; Wt 45.9 kg
[2023-02-13] MEDS ORDERED: Calcium Acetat667 MG (13:21)
[2023-02-13] MEDS ORDERED: Vitamin B-Comp1 EACH (13:21)
[2023-02-13] MEDS ORDERED: COLACE100 MG (13:22)
[2023-02-13] MEDS ORDERED: BUDE.25 (13:22)
[2023-02-13] MEDS ORDERED: COQ-10100 MG (13:22)
[2023-02-13] MEDS ORDERED: FLUC100 (13:23)
[2023-02-13] MEDS ORDERED: FAMO20 (13:23)
[2023-02-13] MEDS ORDERED: METPRE4DP (13:24)
[2023-02-13] MEDS ORDERED: NITR.4SL (13:24)
[2023-02-13] MEDS ORDERED: POTA8 (13:24)
[2023-02-13] MEDS ORDERED: Vitamin C100 M1 (13:25)
[2023-02-13] MEDS ORDERED: XARELTO20 MG (13:25)
[2023-02-13 15:29] VITALS: BP 113/70
== END 2023-02-13 15:43 | disposition home or self-care (01) ==
LOC: ORSCSDS 12:58
DX: R13.14 Dysphagia, pharyngoesophageal phase (principal); K21.00 Gastro-esophageal reflux disease with esophagitis, without bleeding; D12.2 Benign neoplasm of ascending colon; D12.4 Benign neoplasm of descending colon; K57.30 Diverticulosis of large intestine without perforation or abscess without bleeding; Z12.11 Encounter for screening for malignant neoplasm of colon; Z86.010 Personal history of colon polyps; J44.9 Chronic obstructive pulmonary disease, unspecified; E03.9 Hypothyroidism, unspecified; Z79.899 Other long term (current) drug therapy; F17.210 Nicotine dependence, cigarettes, uncomplicated
CPT/HCPCS: 88305; J0461; J1980; J2405; J2704; J7120; Q9968

== ENCOUNTER → 2023-03-18 | Outpatient (CLI) | payer MEDICARE ==
[~2023-03-18] MED LIST changes: +BUDE.25; +COLACE100 MG; +COQ-10100 MG; +Calcium Acetat667 MG; +FAMO20; +FLUC100; +METPRE4DP; +NITR.4SL; +POTA8; +Vitamin B-Comp1 EACH; +Vitamin C100 M1; +XARELTO20 MG
== END ==
LOC: LAB SHORT 07:27 → LAB 07:27
DX: L57.0 Actinic keratosis (principal)
CPT/HCPCS: 88305

== ENCOUNTER → 2023-09-01 | Outpatient (CLI) | payer MEDICARE | LOC: LAB 18:15 → LAB SHORT 18:15 | DX: N34.3 Urethral syndrome, unspecified (principal) | CPT/HCPCS: 87086 ==

== ENCOUNTER 2023-09-27 18:34 | Emergency (ER) | payer MEDICARE ==
[~2023-09-27] VITALS: Ht 162.6 cm; Wt 44.0 kg
[2023-09-27 18:53] VITALS: BP 127/66
[2023-09-27] MEDS ORDERED: RELISTOR150 MG PO (19:40)
== END 2023-09-27 19:58 | disposition home or self-care (01) ==
LOC: ER 18:34
DX: S32.592A Other specified fracture of left pubis, initial encounter for closed fracture (principal); J45.909 Unspecified asthma, uncomplicated; K21.9 Gastro-esophageal reflux disease without esophagitis; J44.9 Chronic obstructive pulmonary disease, unspecified; F17.210 Nicotine dependence, cigarettes, uncomplicated; W19.XXXA Unspecified fall, initial encounter; Z79.899 Other long term (current) drug therapy; Z79.52 Long term (current) use of systemic steroids; Z88.1 Allergy status to other antibiotic agents; Z88.2 Allergy status to sulfonamides; Z88.5 Allergy status to narcotic agent; Z88.8 Allergy status to other drugs, medicaments and biological substances; Z91.040 Latex allergy status
CPT/HCPCS: 99283

== ENCOUNTER → 2024-04-09 | Outpatient (CLI) | payer MEDICARE ==
[~2024-04-09] MED LIST changes: +RELISTOR150 MG PO
[2024-04-13 10:10] LABS: 6-ACETYLMORPHINE, URN, QUANT <10 ng/mL; CODEINE, URN, QUANT <20 ng/mL; HYDROCODONE, URN, QUANT <20 ng/mL; HYDROMORPHONE, URN, QUANT 417 ng/mL; MORPHINE, URN, QUANT 746 ng/mL; NORHYDROCODONE, URN, QUANT <20 ng/mL; NOROXYCODONE, URN, QUANT <20 ng/mL; NOROXYMORPHONE, URN, QUANT <20 ng/mL; OXYCODONE, URN, QUANT <20 ng/mL; OXYMORPHONE, URN, QUANT <20 ng/mL
== END ==
LOC: LAB 15:17 → LAB SHORT 15:17
PROVIDERS: Family Medicine
DX: Z51.81 Encounter for therapeutic drug level monitoring (principal); Z79.899 Other long term (current) drug therapy
CPT/HCPCS: G0480